=== PATIENT | female | born 1995 | race Caucasian/White ===

== ENCOUNTER 2022-06-25 11:27 | Inpatient (IN) | payer BC, OTHER ==
[~2022-06-25] VITALS: Ht 172.7 cm; Wt 56.7 kg
[2022-06-25 11:40] VITALS: BP_SYST 115
[2022-06-25] MEDS ORDERED: HYDROmorphone 1 MG/ML INJ. CARTRIDGE IVP ONE (12:15)
[2022-06-25 14:01] LABS: BASOPHILS % (AUTO) 0.1 % (0.0-2.0); EOSINOPHILS % (AUTO) 0.2 % (0.0-4.0); HEMATOCRIT 38.3 % (36-48); LYMPHOCYTES # (AUTO) 1.4 K/uL (1.0-5.5); LYMPHOCYTES % (AUTO) 9.4 % (20.5-51.5); MEAN CORPUSCULAR HEMOGLOBIN 33 pg (27-31); MEAN CORPUSCULAR HGB CONC 34 % (32-36); MEAN CORPUSCULAR VOLUME 96 fL (79.0-98.0); MONOCYTES # (AUTO) 0.6 K/uL (0.0-1.0); MONOCYTES % (AUTO) 4.2 % (1.7-9.3); NEUTROPHILS # (AUTO) 13.3 K/uL (1.8-7.7); NEUTROPHILS % (AUTO) 86.1 % (40.0-70.0); PLATELET COUNT (AUTO) 263 K/uL (130-430); RED CELL DISTRIBUTION WIDTH 12.4 % (9.0-15.0); WHITE BLOOD COUNT (AUTO) 15.4 K/uL (4.8-10.8)
[2022-06-25 14:08] LABS: CALCIUM 9.7 mg/dL (8.4-11.0); CREATININE 0.8 mg/dL (0.55-1.30)
[2022-06-25 14:14] LABS: ALBUMIN 4.2 g/dL (3.4-4.8); TOTAL BILIRUBIN 0.8 mg/dL (0.0-1.0)
[2022-06-25] MEDS: HYDROmorphone 1 MG/ML INJ. CARTRIDGE IVP PRN ×3 (14:29→20:15)
[2022-06-25 16:30] VITALS: BP_SYST 119
[2022-06-25 16:53] VITALS: BP_SYST 119
[2022-06-25 18:49] LABS: BILIRUBIN,URINE NEGATIVE (NEGATIVE); BLOOD, URINE NEGATIVE (NEGATIVE); CLARITY/URINE SL CLOUDY (CLEAR); COLOR,URINE YELLOW (YELLOW); GLUCOSE,URINE NEGATIVE (NEGATIVE); KETONES,URINE 1+ (NEGATIVE); LEUKOCYTE ESTERASE ,URINE NEGATIVE (NEGATIVE); NITRITE, URINE NEGATIVE (NEGATIVE); PROTEIN URINE TRACE (NEGATIVE); UROBILINOGEN,URINE 0.2 (0.2-1.0)
[2022-06-25 18:52] LABS: HCG,QUAL RESULT NEGATIVE (NEGATIVE)
[2022-06-25 20:00] VITALS: BP_SYST 111
[2022-06-25] MEDS ORDERED: ONDANSETRON HCL 4 MG/2 ML VIAL IVP PRN (21:45)
[2022-06-25] MEDS ORDERED: LORazepam 2 MG/ML VIAL IVP PRN (21:45)
[2022-06-25] MEDS: D5/0.45 NS 1,000 ML IV SCH (23:09)
[2022-06-26] VITALS (7 sets, daily range): BP systolic 87–118
[2022-06-26] MEDS: HYDROmorphone 1 MG/ML INJ. CARTRIDGE IVP PRN ×3 (00:37→07:52)
[2022-06-26 07:19] LABS: BASOPHILS % (AUTO) 0.5 % (0.0-2.0); EOSINOPHILS # (AUTO) 0.1 K/uL (0.0-0.4); HEMATOCRIT 31.3 % (36-48); HEMOGLOBIN 11.2 g/dL (12.0-16.0); LYMPHOCYTES # (AUTO) 1.4 K/uL (1.0-5.5); LYMPHOCYTES % (AUTO) 20.3 % (20.5-51.5); MEAN CORPUSCULAR HEMOGLOBIN 34 pg (27-31); MEAN CORPUSCULAR HGB CONC 36 % (32-36); MEAN CORPUSCULAR VOLUME 95 fL (79.0-98.0); MONOCYTES # (AUTO) 0.5 K/uL (0.0-1.0); MONOCYTES % (AUTO) 7.8 % (1.7-9.3); NEUTROPHILS # (AUTO) 4.8 K/uL (1.8-7.7); NEUTROPHILS % (AUTO) 70.4 % (40.0-70.0); PLATELET COUNT (AUTO) 206 K/uL (130-430); RED CELL DISTRIBUTION WIDTH 12.1 % (9.0-15.0); WHITE BLOOD COUNT (AUTO) 6.8 K/uL (4.8-10.8)
[2022-06-26] MEDS: D5/0.45 NS 1,000 ML IV SCH ×2 (07:45→17:51)
[2022-06-26 08:42] LABS: ALBUMIN 3.3 g/dL (3.4-4.8); CALCIUM 8.2 mg/dL (8.4-11.0); CREATININE 0.67 mg/dL (0.55-1.30); PHOSPHORUS 3.4 mg/dL (2.7-4.5); TOTAL BILIRUBIN 0.7 mg/dL (0.0-1.0)
[2022-06-26] MEDS ORDERED: NALOXONE HCL 0.4 MG/ML AMP (NARCAN) IVP PRN ×6 (11:00→13:00)
[2022-06-26] MEDS ORDERED: METOCLOPRAMIDE HCL 10 MG/2 ML VIAL IVP PRN (11:00)
[2022-06-26] MEDS ORDERED: traMADol HCL HCL 50 MG TABLET (ULTRAM) PO PRN (11:00)
[2022-06-26] MEDS ORDERED: MORPHINE 4 MG INJ. 4 MG/ML VIAL IVP PRN (11:00)
[2022-06-26] MEDS ORDERED: MEPERIDINE HCL/PF 25 MG/ML DISP.SYRIN IVP PRN (11:00)
[2022-06-26] MEDS ORDERED: HYDROmorphone 1 MG/ML INJ. CARTRIDGE IVP PRN ×5 (11:00→13:00)
[2022-06-26] MEDS ORDERED: ONDANSETRON HCL 4 MG/2 ML VIAL IVP PRN (11:00)
[2022-06-26] MEDS ORDERED: LORATADINE 10 MG TABLET PO PRN (11:00)
[2022-06-26] MEDS ORDERED: MIDAZOLAM HCL 5 MG/ML VIAL (VERSED) IV ONE (12:10)
[2022-06-26] MEDS ORDERED: SEVOFLURANE 15 MIN GAS INH ONE (12:10)
[2022-06-26] MEDS ORDERED: WATER FOR IRRIGATION,STERILE 1,000 ML IRRIG.SOLN IR ONE (12:10)
[2022-06-26] MEDS ORDERED: BUPIVACAINE /PF 0.25% 30 ML VIAL INJ ONE (12:10)
[2022-06-26] MEDS ORDERED: ONDANSETRON HCL 4 MG/2 ML VIAL ONE (12:10)
[2022-06-26] MEDS ORDERED: BUPIVACAINE /EPINEPHRINE/PF 0.25% 30 ML VIAL ONE (12:10)
[2022-06-26] MEDS ORDERED: D5/0.45 NS 1,000 ML IV.SOLN IV ONE (12:10)
[2022-06-26] MEDS ORDERED: fentaNYL CITRATE/PF 100 MCG/2 ML AMP ONE (12:10)
[2022-06-26] MEDS ORDERED: PROPOFOL 200MG/ 20ML VIAL (DIPRIVAN) IV ONE (12:10)
[2022-06-26] MEDS ORDERED: ROPIVACAINE 40 MG/20 ML AMP EP ONE (12:10)
[2022-06-26] MEDS ORDERED: HYDROmorphone 2 MG/ML VIAL ONE (12:57)
[2022-06-26] MEDS ORDERED: HYDROmorphone 1 MG/ML INJ. CARTRIDGE IV PRN (13:00)
[2022-06-26] MEDS: ACETAMINOPHEN 500 MG TABLET PO SCH ×2 (14:19→22:25)
[2022-06-26] MEDS: ceFAZolin SODIUM 2 GM in D5W 50 ML IV SCH ×2 (14:23→21:21)
[2022-06-26] MEDS: KETOROLAC TROMETHAMINE 10 MG TABLET (TORADOL) PO SCH ×2 (14:29→22:30)
[2022-06-26] MEDS ORDERED: POTASSIUM CHLORIDE 20 MEQ TAB.PRT.SR PO ONE (16:00)
[2022-06-26] MEDS: oxyCODONE HCL 5 MG TABLET PO PRN (16:36)
[2022-06-27] VITALS: BP_SYST 90
[2022-06-27] MEDS: ceFAZolin SODIUM 2 GM in D5W 50 ML IV SCH (02:39)
[2022-06-27] MEDS: D5/0.45 NS 1,000 ML IV SCH (02:40)
[2022-06-27 04:00] VITALS: BP_SYST 101
[2022-06-27] MEDS: ACETAMINOPHEN 500 MG TABLET PO SCH ×3 (05:05→22:00)
[2022-06-27] MEDS: KETOROLAC TROMETHAMINE 10 MG TABLET (TORADOL) PO SCH (05:06)
[2022-06-27 06:53] LABS: BASOPHILS % (AUTO) 0.4 % (0.0-2.0); EOSINOPHILS # (AUTO) 0.2 K/uL (0.0-0.4); EOSINOPHILS % (AUTO) 2.8 % (0.0-4.0); HEMATOCRIT 27.1 % (36-48); HEMOGLOBIN 9.5 g/dL (12.0-16.0); LYMPHOCYTES # (AUTO) 1.1 K/uL (1.0-5.5); LYMPHOCYTES % (AUTO) 18.3 % (20.5-51.5); MEAN CORPUSCULAR HEMOGLOBIN 34 pg (27-31); MEAN CORPUSCULAR HGB CONC 35 % (32-36); MEAN CORPUSCULAR VOLUME 96 fL (79.0-98.0); MONOCYTES # (AUTO) 0.5 K/uL (0.0-1.0); MONOCYTES % (AUTO) 8.9 % (1.7-9.3); NEUTROPHILS # (AUTO) 4.2 K/uL (1.8-7.7); NEUTROPHILS % (AUTO) 69.6 % (40.0-70.0); PLATELET COUNT (AUTO) 163 K/uL (130-430); RED BLOOD CELL COUNT(AUTO) 2.82 MIL/uL (4.2-6.2); RED CELL DISTRIBUTION WIDTH 11.9 % (9.0-15.0)
[2022-06-27 07:21] LABS: ALBUMIN 2.8 g/dL (3.4-4.8); CALCIUM 7.6 mg/dL (8.4-11.0); CREATININE 0.64 mg/dL (0.55-1.30); TOTAL BILIRUBIN 0.6 mg/dL (0.0-1.0)
[2022-06-27 08:13] VITALS: BP_SYST 91
[2022-06-27] MEDS: ASPIRIN 81 MG TAB.CHEW PO SCH ×2 (08:35→21:18)
[2022-06-27] MEDS: methocarbamoL 500 MG TABLET PO SCH ×3 (08:36→21:18)
[2022-06-27] MEDS: oxyCODONE HCL 5 MG TABLET PO PRN ×4 (08:38→22:29)
[2022-06-27] MEDS ORDERED: ASA81 PO (11:27)
[2022-06-27] MEDS ORDERED: HYDR-3927 PO (11:27)
[2022-06-27 11:30] VITALS: BP_SYST 102
[2022-06-27] MEDS: HYDROcodone/ACETAMIN 5-325 MG TAB (NORCO/ VICODIN) PO PRN ×2 (14:24→21:22)
[2022-06-27 17:31] VITALS: BP_SYST 104
[2022-06-27 20:00] VITALS: BP_SYST 120
[2022-06-28] VITALS: BP_SYST 118
[2022-06-28 04:00] VITALS: BP_SYST 123
[2022-06-28] MEDS: oxyCODONE HCL 5 MG TABLET PO PRN ×2 (04:46→14:18)
[2022-06-28 06:40] LABS: BASOPHILS % (AUTO) 0.2 % (0.0-2.0); EOSINOPHILS % (AUTO) 0.5 % (0.0-4.0); HEMATOCRIT 25.5 % (36-48); LYMPHOCYTES # (AUTO) 0.6 K/uL (1.0-5.5); LYMPHOCYTES % (AUTO) 7.6 % (20.5-51.5); MEAN CORPUSCULAR HEMOGLOBIN 34 pg (27-31); MEAN CORPUSCULAR HGB CONC 36 % (32-36); MEAN CORPUSCULAR VOLUME 95 fL (79.0-98.0); MONOCYTES # (AUTO) 0.4 K/uL (0.0-1.0); MONOCYTES % (AUTO) 5.3 % (1.7-9.3); NEUTROPHILS # (AUTO) 6.7 K/uL (1.8-7.7); NEUTROPHILS % (AUTO) 86.4 % (40.0-70.0); PLATELET COUNT (AUTO) 154 K/uL (130-430); RED BLOOD CELL COUNT(AUTO) 2.68 MIL/uL (4.2-6.2); RED CELL DISTRIBUTION WIDTH 12.1 % (9.0-15.0); WHITE BLOOD COUNT (AUTO) 7.8 K/uL (4.8-10.8)
[2022-06-28] MEDS: ACETAMINOPHEN 500 MG TABLET PO SCH ×2 (06:45→13:55)
[2022-06-28 06:53] LABS: CREATININE 0.63 mg/dL (0.55-1.30)
[2022-06-28 08:00] VITALS: BP_SYST 109
[2022-06-28] MEDS: ASPIRIN 81 MG TAB.CHEW PO SCH (09:09)
[2022-06-28] MEDS: methocarbamoL 500 MG TABLET PO SCH ×2 (09:09→14:17)
[2022-06-28] MEDS: HYDROcodone/ACETAMIN 5-325 MG TAB (NORCO/ VICODIN) PO PRN (09:09)
[2022-06-28 13:40] VITALS: BP_SYST 97
[2022-06-28 14:05] VITALS: BP_SYST 97
== END 2022-06-28 15:55 | disposition home health service (06) | DRG 481 ==
LOC: SED 11:27 → EDBD 11:27 → SMU 13:55
PROVIDERS: ADMIT Preventive Medicine Preventive Medicine/Occupational Environmental Medicine; ATTEND Preventive Medicine Preventive Medicine/Occupational Environmental Medicine
PROC: 0QS704Z Reposition Left Upper Femur with Internal Fixation Device, Open Approach (ICD-10-PCS; principal; 2022-06-26 08:30)
DX: S72.142A Displaced intertrochanteric fracture of left femur, initial encounter for closed fracture (principal); E44.0 Moderate protein-calorie malnutrition; E87.1 Hypo-osmolality and hyponatremia; Z68.1 Body mass index [BMI] 19.9 or less, adult; W18.39XA Other fall on same level, initial encounter; Z20.822 Contact with and (suspected) exposure to COVID-19; J45.909 Unspecified asthma, uncomplicated; D72.829 Elevated white blood cell count, unspecified; E83.51 Hypocalcemia; D64.9 Anemia, unspecified; E88.09 Other disorders of plasma-protein metabolism, not elsewhere classified; Y93.89 Activity, other specified; Y99.8 Other external cause status; Z90.49 Acquired absence of other specified parts of digestive tract; Y92.009 Unspecified place in unspecified non-institutional (private) residence as the place of occurrence of the external cause
CPT/HCPCS: 36415; 70450-TC; 71045; 72125-TC; 72170-TC; 72192-TC; 73552; 76000; 76376; 80048; 80053; 81003; 83735; 84100; 84703; 85025; 85730-TC; 86886; 86900; 86901; 93005; 96374; 96379; 97112-GP; 97116-GP; 97530-GP; 99285; J0690; J1170; J2250; J2405; J2704; J2795; J3010; J3490; J7050; J7060